=== PATIENT | male | born 1990 | race Caucasian/White ===

== ENCOUNTER 2016-09-16 04:35 | Emergency (ER) | payer SELFPAY ==
[~2016-09-16] VITALS: Ht 167.6 cm; Wt 64.6 kg
[2016-09-16] MEDS ORDERED: ACETAMINOPHEN 325 MG TAB PO ONE (05:00)
[2016-09-16 06:19] VITALS: BP 130/72
== END 2016-09-16 07:23 | disposition home or self-care (01) ==
LOC: ER 04:37
DX: J45.909 Unspecified asthma, uncomplicated (principal); B00.9 Herpesviral infection, unspecified

== ENCOUNTER 2020-04-19 22:10 | Emergency (ER) | payer SELFPAY ==
[~2020-04-19] VITALS: Ht 167.6 cm; Wt 68.0 kg
[2020-04-19 22:50] VITALS: BP 111/71
[2020-04-19] MEDS ORDERED: ONDANSETRON ODT 4 MG TAB PO ONE (23:00)
[2020-04-19] MEDS ORDERED: SODIUM CHLORIDE 0.9% 1,000 ML IV ONE (23:15)
[2020-04-19 23:45] LABS: Basophils # (auto) 0.1 10 ^3/uL (0-0.2); Basophils % (auto) 0.4 % (0.0-2.0); Eosinophils # (auto) 0 10 ^3/uL (0-0.8); Eosinophils % (auto) 0.1 % (0.0-7.0); Lymphocytes # (auto) 0.6 10 ^3/uL (0.4-5.4); Lymphocytes % (auto) 3.4 % (10.0-50.0); Mean Corpuscular Hemoglobin 29.4 pg (28.0-32.0); Mean Corpuscular Hgb Conc. 33.4 g/dL (32.0-36.0); Mean Corpuscular Volume 88.2 fL (80.0-100.0); Monocytes # (auto) 0.8 10 ^3/uL (0-1.3); Monocytes % (auto) 4.5 % (0.0-12.0); Neutrophils # (auto) 15.6 10 ^3/uL (1.6-8.6); Neutrophils % (auto) 91.6 % (37.0-80.0); Nucleated Red Blood Cells % 0.3 %; Red Blood Cells 5.78 10^6/uL (4.5-5.90); Red Cell Distribution Width 14.2 % (11.8-14.3); White Blood Cell 17.1 10^3/uL (4.4-10.8)
[2020-04-20] MEDS ORDERED: cefTRIAXone 1GM/50ML D5W 50 ML IV ONE
[2020-04-20 00:09] LABS: Albumin 4.4 g/dL (3.4-5.0); Calcium 9.5 mg/dL (8.5-10.1); Potassium 4.8 mmol/L (3.5-5.1)
[2020-04-20 00:14] LABS: BUN/Creatinine Ratio 24.7; Bilirubin, Total 0.9 mg/dL (0.2-1.0); Total Protein 8.2 g/dL (6.4-8.2)
== END 2020-04-20 01:25 | disposition home or self-care (01) ==
LOC: ER 22:10
DX: D72.829 Elevated white blood cell count, unspecified (principal); E86.0 Dehydration
CPT/HCPCS: 36415; 80053; 83690; 85025; 96361; 96365; 99284; J0696; J7030; Q0162

== ENCOUNTER 2020-04-22 01:06 | Emergency (ER) | payer MEDICAID, OTHER ==
[~2020-04-22] VITALS: Ht 167.6 cm; Wt 63.5 kg
[2020-04-22] MEDS ORDERED: LORazepam 0.5 MG TAB PO ONE (01:45)
[2020-04-22 02:00] VITALS: BP 129/80
== END 2020-04-22 02:56 | disposition home or self-care (01) ==
LOC: ER 01:07
DX: F15.10 Other stimulant abuse, uncomplicated (principal); R33.9 Retention of urine, unspecified